=== PATIENT | male | born 1965 | race Caucasian/White ===

== ENCOUNTER → 2017-08-07 | Outpatient (CLI) | payer OTHER ==
[2013-11-26 10:34] VITALS: BMI 23.1
[~2017-08-07] MED LIST: ACET-1966 PO; ALB18R INH; ALBU8.5H IH; BENZ100C4 PO; CLIN300C99 PO; CYC10 PO; CYCL10TA29 PO; DEXL30CA5 PO; DEXL60CA6; DEXL60CA6 PO; DOC240 PO; DOXY-181 PO; FLUT16SP19; FLUT1DIS28 IH; GAB300 PO; GABA-1 PO; GABA-506 PO; GABA-549 PO; HYD2 PO; HYDR2TAB42 PO; HYDR5SUS PO; LACT1CAP6 PO; LOR1 PO; LOR5/325 PO; METH4TAB66 PO; MONT10TA PO; MOXI400T2 PO; NAP250 PO; OMEP1CAP24 PO; ONDA4TAB PO; OXYC-689 PO; PROM-110 PO; PROP60TA15 PO; PROP80CA3 PO; SIMV5TAB56 PO; ZIGRID; [UNRECOGNIZED DRUG - CODE] PO
--- NOTE | 2017-08-07 16:55 | RADIOLOGY IMAGING REPORT ---
FACILITY: [facility] PATIENT NAME: Ricky Reveles : 1965 MR: [id number] V: [id number] EXAM DATE: ORDERING PHYSICIAN: MARCO TESFAYE TECHNOLOGIST: Location: [place] [facility] - [place] Patient: Ricky Reveles : 1965 Visit/Account:[id number] Date of Sevice: 08/07/2017 Exam type: CHEST PA AND LAT History: Cough for a month Comparison: October 26, 2016. Findings: The lungs are free of acute effusions, infiltrates or edema. The cardiac silhouette is normal in siz e. The trachea is in midline. IMPRESSION: 1. No acute cardiac pulmonary process is seen Report Dictated By: Lia Rivera MD at 08/07/2017 4:49 PM Report E-Signed By: Lia Rivera MD at 08/07/2017 4:51 PM WSN:[email or web address]
== END ==
LOC: RAD 14:04
PROVIDERS: ATTEND Emergency Medicine
DX: R05 Cough (principal)
CPT/HCPCS: 71046

== ENCOUNTER 2017-08-08 16:35 | Emergency (ER) | payer OTHER ==
[2013-11-26 10:34] VITALS: Wt 70.3 kg
--- NOTE | 2017-08-08 16:45 | ER Report ---
History and Physical Time Seen By MD: 16:45 HPI/ROS CHIEF COMPLAINT: Headache HISTORY OF PRESENT ILLNESS: Patient is a 51-year-old male here with a history of migraines complaining of headache for the past several weeks worsening today per patient report. Patient notes that his PCP ordered an MRI outpatient due to concern for his headaches. He comes in today complaining of photosensitivity, throbbing sensation behind his temples and behind his eyes and at the base of the skull. Patient denies fevers, chills, chest pain, shortness breath. Complaining of an intermittent cough which seems to make his headache worse. Patient is hemodynamically stable at time of evaluation complaining of headache and light sensitivity. Patient reports taking opiates as well as Flexeril at home without alleviation of symptoms. REVIEW OF SYSTEMS: Constitutional: No fever, no chills. Eyes: Photosensitivity ENT: No sore throat. Cardiovascular: No chest pain, no palpitations. Respiratory: + mild cough Gastrointestinal: No abdominal pain, no vomiting. Genitourinary: No hematuria. Musculoskeletal: No back pain. Skin: No rashes. Neurological: + headache. Allergies: Coded Allergies: Penicillins (Verified Allergy, Unknown, 08/08/17) montelukast (Verified Allergy, Unknown, Rash, 08/08/17) Home Meds Active Scripts Benzonatate 100 Mg Cap (TESSALON PERLE 100 MG CAP) 100 Mg Capsule, 1-2 TAB PO TID, #30 CAP Prov:MARCO TESFAYE MD 08/08/17 Albuterol Sulfate (VENTOLIN HFA) 18 Gm Inh, 2 PUFF INH Q4-6H, #1 INH Prov:MARCO TESFAYE MD 08/08/17 Fluticasone/Salmeterol (ADVAIR 250-50 DISKUS) 1 Each Disk.w.dev, 1 EACH IH BID, #1 DISK Prov:MARCO TESFAYE MD 08/08/17 Cyclobenzaprine Hcl (CYCLOBENZAPRINE HCL) 10 Mg Tablet, 10 MG PO TID Y for prn, #12 TAB 0 Refills Prov:NADEEN MOSLEY PATIENT SERVICE REPRESENTATIVE-BC 07/28/17 Hydrocodone Bit/Acetaminophen (HYDROCODON-ACETAMINOPHEN 5-325) 1 Each Tablet, 1 EACH PO Q4-6H, #30 TAB Prov:MARCO TESFAYE MD 11/21/16 Gabapentin (GABAPENTIN) 300 Mg Capsule, 3 TAB PO DAILY, #270 CAPSULE 3 Refills Prov:MARCO TESFAYE MD 11/14/16 Dexlansoprazole (DEXILANT) 60 Mg Buddy., 1 TAB PO DAILY, #90 TAB 3 Refills Prov:MARCO TESFAYE MD 07/28/16 Fluticasone Prop 50 Mcg Ns (FLONASE 50 MCG NS) 16 Gm Alta.susp, 2 SPRAYS NA QDAY, #3 BOT 3 Refills Prov:MARCO TESFAYE MD 06/24/16 Reported Medications Propranolol Hcl (PROPRANOLOL HCL) 60 Mg Tablet, 1 TAB PO DAILY 05/24/16 Discontinued Reported Medications Acetaminophen (TYLENOL) 325 Mg Tablet, 650 MG PO Q6H Y for PRN, TAB 10/12/16 Albuterol Sulfate 90 Mcg/Act (PROAIR HFA 90 MCG/ACT) 8.5 Gm Hfa.aer.ad, 2 PUFF IH Q4-6H, INHALER 05/24/16 Discontinued Scripts Methylprednisolone (METHYLPREDNISOLONE) 4 Mg Tab.ds.pk, 4 MG PO DIRECTED, #1 PACK 0 Refills Prov:NADEEN MOSLEY PATIENT SERVICE REPRESENTATIVE-BC 07/28/17 Promethazine Hcl (PROMETHAZINE HCL) 25 Mg Tablet, 25 MG PO Q8H, #30 TAB Prov:MARCO TESFAYE MD 11/15/16 Cyclobenzaprine Hcl (CYCLOBENZAPRINE HCL) 10 Mg Tablet, 10 MG PO TID, #20 TAB 3 Refills Prov:MARCO TESFAYE MD 11/14/16 Hydrocodone/Chlorphen Polis (HYDROCODONE-CHLORPHENIRAM SUSP) 5 Ml Kyleigh.er.12h, 1 TSP PO Q12H Y for cough/pain, #120 ML 0 Refills Prov:MARCO TESFAYE MD 11/14/16 Doxycycline Hyclate (DOXYCYCLINE HYCLATE) 100 Mg Capsule, 100 MG PO BID, #20 CAPSULE 0 Refills Prov:OMID KING APRN PATIENT SERVICE REPRESENTATIVE-C 10/26/16 Ondansetron (ZOFRAN ODT) 4 Mg Tab.rapdis, 4 MG PO Q6-8H Y for NAUSEA/VOMITING, # 15 TAB.SHAUNNA Prov:MARS BATES DO 10/12/16 Hx Smoking: No Smoking Status: Never Smoker Exposure to Second Hand Smoke?: No Hx Substance Use Disorder: No Hx Alcohol Use: Yes Constitutional Vital Sign - Last 24 Hours 08/08/17 08/08/17 08/08/17 08/08/17 16:40 16:43 16:50 17:00 Temp 98.3 Pulse 90 91 Resp 16 B/P (MAP) 122/84 (97) 122/84 116/84 (95) Pulse Ox 91 94 O2 Delivery Room Air 08/08/17 08/08/17 08/08/17 08/08/17 17:05 17:30 17:35 17:50 Pulse 84 82 82 B/P (MAP) 104/78 (87) Pulse Ox 94 88 88 08/08/17 08/08/17 08/08/17 08/08/17 18:00 18:05 18:10 18:25 Pulse 85 84 89 B/P (MAP) 109/78 (88) Pulse Ox 86 87 08/08/17 18:30 B/P (MAP) 103/75 (84) Physical Exam General Appearance: The patient is alert, has no immediate need for airway protection and no signs of toxicity. Uncomfortable secondary to pain Eyes: Pupils equal and round no pallor or injection. ENT, Mouth: Mucous membranes are moist. Respiratory: There are no retractions, lungs are clear to auscultation. Cardiovascular: Regular rate and rhythm. Gastrointestinal: Abdomen is soft and non tender, no masses, bowel sounds normal. Neurological: No focal neurological deficits Skin: Warm and dry, no rashes. Musculoskeletal: Neck is supple non tender. Extremities are nontender, nonswollen and have full range of motion. DIFFERENTIAL DIAGNOSIS: After history and physical exam differential diagnosis was considered for tension headache, migraine, rebound headaches, concussion Medical Decision Making Data Points Result Diagram: 08/08/17 1656 08/08/17 1656 Laboratory Hematology Test 08/08/17 16:56 Red Blood Count 5.35 M/uL (4.00-5.60) Mean Corpuscular Volume 85.4 fL (80.0-96.0) Mean Corpuscular Hemoglobin 29.3 pg (26.0-33.0) Mean Corpuscular Hemoglobin Concent 34.3 g/dL (32.0-36.0) Red Cell Distribution Width 13.2 % (11.5-14.5) Mean Platelet Volume 8.1 fL (7.2-11.1) Neutrophils (%) (Auto) % (39.4-72.5) Lymphocytes (%) (Auto) % (17.6-49.6) Monocytes (%) (Auto) % (4.1-12.4) Eosinophils (%) (Auto) % (0.4-6.7) Basophils (%) (Auto) % (0.3-1.4) Nucleated RBC Relative Count (auto) /100WBC Neutrophils # (Auto) K/uL (2.0-7.4) Lymphocytes # (Auto) K/uL (1.3-3.6) Monocytes # (Auto) K/uL (0.3-1.0) Eosinophils # (Auto) K/uL (0.0-0.5) Basophils # (Auto) K/uL (0.0-0.1) Nucleated RBC Absolute Count (auto) K/uL Neutrophils % (Manual) 26 % (39.4-72.5) Band Neutrophils % % Lymphocytes % (Manual) 43 % (17.6-49.6) Atypical Lymphocytes % 19 % Monocytes % (Manual) 5 % (4.1-12.4) Eosinophils % (Manual) 4 % (0.4-6.7) Basophils % (Manual) 3 % (0.3-1.4) Peripheral Blood Smear Yes Y/N Erythrocyte Sedimentation Rate 33 mm/HOUR (0-15) Sodium Level 138 mmol/L (137-145) Potassium Level 3.9 mmol/L (3.5-5.0) Chloride Level 102 mmol/L (98-107) Carbon Dioxide Level 23 mmol/L (22-30) Blood Urea Nitrogen 11 mg/dl (9-21) Creatinine 1.30 mg/dl (0.66-1.25) Glomerular Filtration Rate Calc 58.7 Random Glucose 107 mg/dl (75-110) Calcium Level 8.9 mg/dl (8.4-10.2) Total Bilirubin 1.3 mg/dl (0.2-1.3) Aspartate Amino Transf (AST/SGOT) 42 U/L (0-35) Alanine Aminotransferase (ALT/SGPT) 62 U/L (0-56) Alkaline Phosphatase 87 U/L (0-126) Total Protein 7.8 g/dl (6.3-8.2) Albumin 3.7 g/dl (3.5-5.0) Chemistry Test 08/08/17 16:56 White Blood Count 14.3 k/uL (4.5-11.0) Red Blood Count 5.35 M/uL (4.00-5.60) Hemoglobin 15.7 g/dL (14.0-18.0) Hematocrit 45.7 % (42.0-52.0) Mean Corpuscular Volume 85.4 fL (80.0-96.0) Mean Corpuscular Hemoglobin 29.3 pg (26.0-33.0) Mean Corpuscular Hemoglobin Concent 34.3 g/dL (32.0-36.0) Red Cell Distribution Width 13.2 % (11.5-14.5) Platelet Count 183 K/uL (150-450) Mean Platelet Volume 8.1 fL (7.2-11.1) Neutrophils (%) (Auto) % (39.4-72.5) Lymphocytes (%) (Auto) % (17.6-49.6) Monocytes (%) (Auto) % (4.1-12.4) Eosinophils (%) (Auto) % (0.4-6.7) Basophils (%) (Auto) % (0.3-1.4) Nucleated RBC Relative Count (auto) /100WBC Neutrophils # (Auto) K/uL (2.0-7.4) Lymphocytes # (Auto) K/uL (1.3-3.6) Monocytes # (Auto) K/uL (0.3-1.0) Eosinophils # (Auto) K/uL (0.0-0.5) Basophils # (Auto) K/uL (0.0-0.1) Nucleated RBC Absolute Count (auto) K/uL Neutrophils % (Manual) 26 % (39.4-72.5) Band Neutrophils % % Lymphocytes % (Manual) 43 % (17.6-49.6) Atypical Lymphocytes % 19 % Monocytes % (Manual) 5 % (4.1-12.4) Eosinophils % (Manual) 4 % (0.4-6.7) Basophils % (Manual) 3 % (0.3-1.4) Peripheral Blood Smear Yes Y/N Erythrocyte Sedimentation Rate 33 mm/HOUR (0-15) Glomerular Filtration Rate Calc 58.7 Calcium Level 8.9 mg/dl (8.4-10.2) Total Bilirubin 1.3 mg/dl (0.2-1.3) Aspartate Amino Transf (AST/SGOT) 42 U/L (0-35) Alanine Aminotransferase (ALT/SGPT) 62 U/L (0-56) Alkaline Phosphatase 87 U/L (0-126) Total Protein 7.8 g/dl (6.3-8.2) Albumin 3.7 g/dl (3.5-5.0) EKG/Imaging Imaging HEAD W/O CONTRAST EXAMINATION: CT head/brain without contrast HISTORY: Headache TECHNIQUE: Contiguous axial images were obtained from the skull base to the vertex without intravenous contrast. One of the following dose optimization techniques was utilized in the performance of this exam: Automated exposure control; adjustment of the mA and/ or kV according to the patient's size; or use of an iterative reconstruction technique. Specific details can be referenced in the facility's radiology CT exam operational policy. COMPARISON STUDIES: None FINDINGS: Ventricles/sulci/fissures: Negative Masses/hemorrhage/midline shift: Negative White matter: Negative Delgado-white differentiation: Negative Extra-axial spaces: No subdural or epidural fluid collections. Dural venous sinuses/arterial structures: Negative Skull base/calvarium: Negative Visualized mastoid air cells/paranasal sinuses: Mild ethmoid sinus disease. Mucosal periosteal thickening in both maxillary sinuses left greater than right. Apparent 1.5 cm mucous retention cyst or polyp in the left maxillary sinus. Attenuated left mastoid air cells. IMPRESSION: 1. Negative CT scan of the head for acute intracranial pathology 2. Maxillary and ethmoid sinus disease. Hypoplastic mastoid air cells on the left ED Course/Re-evaluation ED Course Patient is a 51-year-old male here with complaints of headache consistent with prior migraines. Patient has been having intermittent headaches for the past several weeks and was sent in today because of his persistent headaches in spite of taking home medication. Patient denied fevers, chills, chest pain, abdominal pain, nausea, vomiting, rashes or confusion. Labs are remarkable for an increased white blood cell count and elevated ESR. Patient recently had a chest x-ray which was reportedly unremarkable. Physical exam was unremarkable. Patient did not exhibit signs of neck tenderness, fevers, hemodynamic instability. Patient received normal saline bolus, Benadryl, Toradol, magnesium , steroids for symptomatic relief. Patient reported that his pain had significantly improved since administration of the above medications. Patient was stable at time of discharge. Decision to Disposition Date: Aug 08, 2017 Decision to Disposition Time: 17:30 Depart Departure Latest Vital Signs Vital Signs Date Time Temp Pulse Resp B/P (MAP) Pulse Ox O2 Delivery O2 Flow Rate FiO2 08/08/17 18:30 103/75 (84) 08/08/17 18:25 89 87 08/08/17 16:43 98.3 16 Room Air Impression: Primary Impression: Migraine Condition: Improved Disposition: HOME OR SELF-CARE Referrals: MARCO TESFAYE MD (PCP) Patient Instructions: Migraine Headache (ED) Additional Instructions: Please follow up with your family doctor. Please keep your appointment for her MRI imaging as prescribed by your doctor. Please return promptly if you develop worsening headache, fevers, difficulty seeing, worsening fatigue or weakness. NGOC LATHAM DO Aug 08, 2017 16:45
[2017-08-08] MEDS ORDERED: NS(*) 0.9% 1000 ML BAG 1,000 ML IV ONE (16:52)
[2017-08-08] MEDS ORDERED: diphenhydrAMINE 50 MG/ML VIAL IVP ONE (16:55)
[2017-08-08] MEDS ORDERED: MAGNESIUM SUL* 2 GM/50 ML IVPB 50 ML IVPB ONE (16:55)
[2017-08-08] MEDS ORDERED: KETOROLAC 30 MG/ML VIAL IVP ONE (16:55)
[2017-08-08] MEDS ORDERED: DEXAMETHASONE SOD PHOS 10MG/ML IVP ONE (16:55)
[2017-08-08] MEDS ORDERED: METOCLOPRAMIDE 10 MG/2 ML SDV IVP ONE (16:55)
[2017-08-08 17:09] LABS: PLATELET COUNT, AUTOMATED 183 K/uL (150-450)
--- NOTE | 2017-08-08 17:48 | RADIOLOGY IMAGING REPORT ---
[place]AC[place] [facility] [place]IENT NAME: Ricky Reveles : 1965 MR: [id number] V: [id number] EXAM DATE: ORDERING PHYSICIAN: NGOC LATHAM TECHNOLOGIST: Location: [facility] - [place], [place] Patient: Ricky Reveles : 1965 Visit/Account:[id number] Date of Sevice: 08/08/2017 HEAD W/O CONTRAST EXAMINATION: CT head/brain without contrast HISTORY: Headache TECHNIQUE: Contiguous axial images were obtained from the skull base to the vertex without intravenou s contrast. One of the following dose optimization techniques was utilized in the performance of this exam: Autom ated exposure control; adjustment of the mA and/or kV according to the patient's size; or use of an i terative reconstruction technique. Specific details can be referenced in the facility's radiology C T exam operational policy. COMPARISON STUDIES: None FINDINGS: Ventricles/sulci/fissures: Negative Masses/hemorrhage/midline shift: Negative White matter: Negative Delgado-white differentiation: Negative Extra-axial spaces: No subdural or epidural fluid collections. Dural venous sinuses/arterial structures: Negative Skull base/calvarium: Negative Visualized mastoid air cells/paranasal sinuses: Mild ethmoid sinus disease. Mucosal periosteal thicke dax in both maxillary sinuses left greater than right. Apparent 1.5 cm mucous retention cyst or poly p in the left maxillary sinus. Attenuated left mastoid air cells. IMPRESSION: 1. Negative CT scan of the head for acute intracranial pathology 2. Maxillary and ethmoid sinus disease. Hypoplastic mastoid air cells on the left Report Dictated By: Piter Plaza MD at 08/08/2017 5:39 PM Report E-Signed By: Piter Plaza MD at 08/08/2017 5:44 PM WSN:[id number]
[2017-08-08 18:30] VITALS: BP 103/75
== END 2017-08-08 18:35 | disposition home or self-care (01) ==
LOC: ER 16:53
DX: G43.909 Migraine, unspecified, not intractable, without status migrainosus (principal)
CPT/HCPCS: 70450; 85025; 85651; 96361; 96374; 96375; 99284; J1100; J1200; J1885; J2765; J3475; 82040; 82247; 82310; 82374; 82435; 82565; 82947; 84075; 84132; 84155; 84295; 84450; 84460; 84520

== ENCOUNTER → 2017-08-22 | Outpatient (CLI) | payer OTHER ==
[2013-11-26 10:34] VITALS: BMI 23.1
[~2017-08-22] MED LIST changes: +GADOBENATE 529MG/1ML 15ML VIAL IVP ONE
--- NOTE | 2017-08-22 10:58 | RADIOLOGY IMAGING REPORT ---
FACILITY: [facility] - [place] PATIENT NAME: Ricky Reveles : 1965 MR: [id number] V: [id number] EXAM DATE: ORDERING PHYSICIAN: MARCO TESFAYE TECHNOLOGIST: Location: [facility] Patient: Ricky Reveles : 1965 Visit/Account:[id number] Date of Sevice: 08/22/2017 BRAIN MR W W/O CONTRAST Headache, ADDITIONAL PERTINENT HISTORY: None. COMPARISON STUDIES: MR brain October 20, [address] August 08, 2017 TECHNIQUE: Multi-planar, multi-sequence brain MRI was performed with and without IV contrast adminis tration. Contrast: 15 mL MultiHance FINDINGS: Ventricles / sulci / fissures: Negative. Masses / hemorrhage / midline shift: Negative. White matter: Again noted is a single stable punctate focus of nonenhancing white matter hyperintens ity in the posterior left frontal lobe which is nonspecific Delgado-white differentiation: Normal. Extra-axial fluid collections: Negative. Intracranial vasculature and dural sinuses: Small developmental venous anomaly in the right cerebell um again noted Skull base / calvarium: Negative. Visualized mastoid air cells / paranasal sinuses: There is extensive fluid opacification in the maxil walker sinuses ethmoid sinuses and right sphenoid sinus Orbits: Negative. Upper neck:Negative. IMPRESSION: A single stable punctate focus of nonenhancing white matter hyperintensity in the posterior left fron mao lobe is nonspecific Small developmental venous anomaly in the right cerebellum Extensive opacification within the maxillary sinuses ethmoid sinuses and right sphenoid sinus Report Dictated By: Lia Rivera MD at 08/22/2017 10:46 AM Report E-Signed By: Lia Rivera MD at 08/22/2017 10:54 AM WSN:[email or web address]
== END ==
LOC: MRI 01:09
PROVIDERS: ATTEND Emergency Medicine
DX: J32.3 Chronic sphenoidal sinusitis (principal); J32.0 Chronic maxillary sinusitis
CPT/HCPCS: 70553; A9577

== ENCOUNTER → 2017-11-21 | Outpatient (CLI) | payer OTHER ==
[2013-11-26 10:34] VITALS: BMI 23.1
[~2017-11-21] MED LIST changes: +FLU60SYR36 IM; -GADOBENATE 529MG/1ML 15ML VIAL IVP ONE; +LIDO700A19 TOP
== END ==
LOC: LAB 10:00
PROVIDERS: ATTEND Emergency Medicine
DX: E78.5 Hyperlipidemia, unspecified (principal)
CPT/HCPCS: 36415; 82465; 83718; 84478

== ENCOUNTER → 2018-01-23 | Outpatient (CLI) | payer OTHER ==
[2013-11-26 10:34] VITALS: BMI 23.1
[~2018-01-23] MED LIST changes: +PROP60CA22 PO
[2018-01-23 12:11] LABS: PLATELET COUNT, AUTOMATED 281 K/uL (150-450)
== END ==
LOC: LAB 11:19
PROVIDERS: ATTEND Internal Medicine Nephrology
DX: N28.1 Cyst of kidney, acquired (principal); R80.9 Proteinuria, unspecified; R31.9 Hematuria, unspecified; N02.8 Recurrent and persistent hematuria with other morphologic changes
CPT/HCPCS: 36415; 81001; 82040; 82247; 82310; 82374; 82435; 82565; 82570; 82947; 84075; 84132; 84155; 84156; 84295; 84450; 84460; 84520; 85025

== ENCOUNTER 2018-01-31 01:06 | Day surgery (SDC) | payer OTHER ==
[2013-11-26 10:34] VITALS: Ht 172.7 cm; Wt 69.4 kg
[~2018-01-31] VITALS: Ht 172.7 cm; Wt 69.4 kg
[~2018-01-31 01:06] MED LIST changes: -GABA-506 PO; +GABA-507 PO
[2018-01-31] MEDS ORDERED: PROPOFOL EMUL(*) 10MG/ML 20 ML 20 ML ONE ×2 (07:03→08:54)
[2018-01-31 08:11] VITALS: BP 111/82
[2018-01-31] MEDS ORDERED: NORMOSOL R SOLN(*) 1000 ML BAG 1,000 ML IV PRN (08:20)
[2018-01-31] MEDS ORDERED: LIDOCAINE/SOD BICARB 8.4% SYR ID ONE (08:20)
[2018-01-31 09:16] VITALS: BP 110/87
--- NOTE | 2018-01-31 09:28 | Short(Outpt) Discharge Summary ---
Discharge Summary Reason for Hosp/Final Diag: (1) GERD (gastroesophageal reflux disease) Status: Chronic Hospital Course & Plan: EGD and colonoscopy with polypectomy x1 completed without problems. (2) Colon cancer screening Status: Chronic Departure Discharge to: Home, Self Care Discharge Instructions Home Meds Active Scripts Gabapentin (GABAPENTIN) 300 Mg Capsule, 3 TAB PO DAILY, #270 CAPSULE 3 Refills Prov:MARCO TESFAYE MD 01/24/18 Albuterol Sulfate (VENTOLIN HFA) 18 Gm Inh, 2 PUFF INH Q4-6H PRN for ALLERGY SYMPTOMS, #1 INH Prov:HOOD LIRA MD 12/19/17 Dexlansoprazole (DEXILANT) 60 Mg Cap., 1 TAB PO DAILY, #90 TAB 3 Refills Prov:MARCO TESFAYE MD 12/07/17 Reported Medications Propranolol Hcl (PROPRANOLOL HCL) 60 Mg Cap.sa.24h, 60 MG PO QDAY 12/20/17 Diet: Regular Activity: As Tolerated Special Instructions: Your upper endoscopy and your colonoscopy were both completed without any problems and your prep was excellent (Good Job!!). Other than the small hiatal hernia, your upper endoscopy was normal. Your colon was normal except for a tiny polyp that I removed from your rectum and it was sent to pathology. My office will call you in the next week or two to let you know what the polyp is and when your next colonoscopy should be; either 5 or 10 years depending on results. Copies to: MARCO TESFAYE MD ; Problem Qualifiers (1) GERD (gastroesophageal reflux disease): Esophagitis presence: without esophagitis Qualified Codes: K21.9 - Gastro- esophageal reflux disease without esophagitis HOOD LIRA MD Jan 31, 2018 09:28
[2018-01-31 09:30] VITALS: BP 119/87
[2018-01-31 09:44] VITALS: BP 113/85
[2018-01-31 09:45] VITALS: BP 116/88
== END 2018-01-31 10:05 | disposition home or self-care (01) ==
LOC: OR 01:06
PROVIDERS: ATTEND Surgery
DX: Z12.11 Encounter for screening for malignant neoplasm of colon (principal); K62.1 Rectal polyp; K21.9 Gastro-esophageal reflux disease without esophagitis
CPT/HCPCS: 00813; 43235; 45380; 88305; J2704

== ENCOUNTER → 2018-05-22 | Outpatient (CLI) | payer OTHER ==
[2013-11-26 10:34] VITALS: BMI 23.1
[~2018-05-22] MED LIST changes: -GABA-507 PO; +GABA-535 PO; +PRED-1 PO; +PROM5SYR PO; +PROP80CA40 PO
[2018-05-22 09:38] LABS: PLATELET COUNT, AUTOMATED 326 K/uL (150-450)
--- NOTE | 2018-05-22 09:54 | RADIOLOGY IMAGING REPORT ---
FACILITY: [facility] [place] PATIENT NAME: Ricky Reveles : 1965 MR: [id number] V: [id number] EXAM DATE: ORDERING PHYSICIAN: MARCO TESFAYE TECHNOLOGIST: Location[place] [facility] [place] Patient: Ricky Reveles : 1965 Visit/Account:[id number] Date of Sevice: 05/22/2018 Exam type: CHEST PA LAT History: Bronchitis, cough and chest pressure x1 month Comparison: August 07, 2017. Findings: The lungs are free of acute effusions infiltrates or edema. Cardiac silhouette is normal in size. T he trachea is in midline. IMPRESSION: 1. No acute cardiopulmonary process is seen Report Dictated By: Lia Rivera MD at 05/22/2018 9:49 AM Report E-Signed By: Lia Rivera MD at 05/22/2018 9:50 AM WSN:[email or web address]
== END ==
LOC: LAB 09:08
PROVIDERS: ATTEND Emergency Medicine
DX: J40 Bronchitis, not specified as acute or chronic (principal); E78.00 Pure hypercholesterolemia, unspecified
CPT/HCPCS: 36415; 71046; 82310; 82374; 82435; 82465; 82565; 82947; 83718; 84132; 84295; 84478; 84520; 85025

== ENCOUNTER 2018-06-30 13:45 | Emergency (ER) | payer OTHER ==
[2013-11-26 10:34] VITALS: BMI 23.1
[2018-06-30] MEDS ORDERED: NS(*) 0.9% 1000 ML BAG 1,000 ML IV ONE (13:47)
--- NOTE | 2018-06-30 13:57 | ER Report ---
History and Physical Time Seen By MD: 13:56 Hx. of Stated Complaint: pt presents with reported hx of sitting in the grass at park when a dog knocked him over with leash rwrapping around his neck. pt has no movement on L side of his body with pain in his neck. sent pt to ct on arrival (NGOC LATHAM DO) HPI/ROS CHIEF COMPLAINT: Cervical spine pain, left upper and lower extremity paresis HISTORY OF PRESENT ILLNESS: Patient is a 52-year-old male here with complaints of neck pain, left upper and left lower extremity paresis. Patient was reportedly sitting at the park when a dog reportedly ran by him rewrapping the leash around his neck and causing left-sided neck pain. 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 Denies loss consciousness, difficulty breathing, stridor, dysphagia. REVIEW OF SYSTEMS: Constitutional: No fever, no chills. Eyes: No discharge. ENT: No sore throat. Cardiovascular: No chest pain, no palpitations. Respiratory: No cough, no shortness of breath. Gastrointestinal: No abdominal pain, no vomiting. Genitourinary: No hematuria. Musculoskeletal: + Cervical spine neck pain Skin: No rashes. Neurological: Left upper and left lower extremity paresis per patient report (NGOC LATHAM DO) Allergies: Coded Allergies: Penicillins (Verified Allergy, Unknown, 06/30/18) montelukast (Verified Allergy, Unknown, Rash, 06/30/18) Home Meds Active Scripts Prednisone (PREDNISONE) 20 Mg Tablet, 60 MG PO QDAY, #12 TAB 0 Refills Prov:JENNIFER SOMMER MD 06/30/18 Oxycodone Hcl (OXYCODONE HCL) 5 Mg Capsule, 5 MG PO Q4-6H PRN for PAIN, #15 CAPSULE Prov:NGOC LATHAM DO 06/30/18 Albuterol Sulfate (VENTOLIN HFA) 18 Gm Inh, 2 PUFF INH Q4-6H PRN for ALLERGY SYMPTOMS, #1 INH Prov:MARCO TESFAYE MD 05/22/18 Propranolol Hcl (INDERAL LA) 80 Mg Cap.sa.24h, 80 MG PO DAILY, #90 TAB 3 Refills Prov:MARCO TESFAYE MD 02/27/18 Gabapentin (GABAPENTIN) 300 Mg Capsule, 3 TAB PO DAILY, #270 CAPSULE 3 Refills Prov:MARCO TESFAYE MD 01/24/18 Dexlansoprazole (DEXILANT) 60 Mg Cap., 1 TAB PO DAILY, #90 TAB 3 Refills Prov:MARCO TESFAYE MD 12/07/17 Reported Medications Fluticasone Prop 50 Mcg Ns (FLONASE 50 MCG NS) 16 Gm [place].susp 06/30/18 Discontinued Scripts Prednisone 10 Mg Tab (PREDNISONE 10 MG TAB) 10 Mg Tablet, 6 TAB PO QDAY, #21 TAB Prov:MARCO TESFAYE MD 05/22/18 Hx Smoking: No Smoking Status: Never Smoker Exposure to Second Hand Smoke?: No Hx Substance Use Disorder: No Hx Alcohol Use: Yes (NGOC LATHAM DO) Constitutional Vital Sign - Last 24 Hours 06/30/18 06/30/18 06/30/18 06/30/18 13:56 14:00 14:15 14:30 Pulse 82 Resp 12 B/P (MAP) 135/91 (106) 127/91 (103) 130/90 (103) 147/105 (119) Pulse Ox 89 06/30/18 06/30/18 06/30/18 06/30/18 14:45 15:00 15:15 15:30 Pulse 76 91 Resp 9 11 B/P (MAP) 119/92 (101) 121/88 (99) 164/116 (132) Pulse Ox 92 93 06/30/18 06/30/18 06/30/18 06/30/18 15:35 17:16 17:30 18:00 Pulse 91 82 85 Resp 17 20 18 B/P (MAP) 128/95 (106) 122/91 (101) 128/94 (105) Pulse Ox 96 90 94 06/30/18 18:30 Pulse 90 Resp 16 B/P (MAP) 128/101 (110) Pulse Ox 93 (JENNIFER SOMMER MD) Physical Exam General Appearance: The patient is alert, has no immediate need for airway protection and no signs of toxicity. Moderate distress Eyes: Pupils equal and round no pallor or injection. ENT, Mouth: Mucous membranes are moist. Respiratory: There are no retractions, lungs are clear to auscultation. Cardiovascular: Regular rate and rhythm. Gastrointestinal: Abdomen is soft and non tender, no masses, bowel sounds normal. Neurological: Left upper and left lower extremity paresis, reflexes intact Skin: Warm and dry, no rashes. Musculoskeletal: Significant cervical spine tenderness, c-collar in place No movement of the left upper or left lower extremities DIFFERENTIAL DIAGNOSIS: After history and physical exam differential diagnosis was considered for fracture, contusion, sprain, dislocation, cord impingement (NGOC LATHAM S DO) Medical Decision Making Data Points Result Diagram: 06/30/18 1350 06/30/18 1350 Laboratory Hematology Test 06/30/18 00:00 06/30/18 13:50 Urine Color Yellow Urine Clarity Clear Urine pH 5.0 pH (4.8-9.5) Urine Specific [place] 1.026 Urine Protein Negative mg/dL (NEGATIVE) Urine Glucose (UA) Negative mg/dL (NEGATIVE) Urine Ketones Negative mg/dL (NEGATIVE) Urine Blood Negative (NEGATIVE) Urine Nitrite Negative (NEGATIVE) Urine Bilirubin Negative (NEGATIVE) Urine Urobilinogen Negative mg/dL (0.2-1.9) Urine Leukocyte Esterase Negative (NEGATIVE) Urine RBC <1 /HPF (0-2/HPF) Urine WBC <1 /HPF (0-5/HPF) Urine Squamous Epithelial Cells Few /LPF (NONE-FEW) Urine Bacteria Negative /HPF (NONE-FEW) Urine Mucus None /HPF (NONE-FEW) Red Blood Count 5.50 M/uL (4.00-5.60) Mean Corpuscular Volume 87.9 fL (80.0-96.0) Mean Corpuscular Hemoglobin 29.5 pg (26.0-33.0) Mean Corpuscular Hemoglobin Concent 33.6 g/dL (32.0-36.0) Red Cell Distribution Width 13.4 % (11.5-14.5) Mean Platelet Volume 8.8 fL (7.2-11.1) Neutrophils (%) (Auto) 47.9 % (39.4-72.5) Lymphocytes (%) (Auto) 42.3 % (17.6-49.6) Monocytes (%) (Auto) 7.0 % (4.1-12.4) Eosinophils (%) (Auto) 1.9 % (0.4-6.7) Basophils (%) (Auto) 0.9 % (0.3-1.4) Nucleated RBC Relative Count (auto) 0.1 /100WBC Neutrophils # (Auto) 4.5 K/uL (2.0-7.4) Lymphocytes # (Auto) 4.0 K/uL (1.3-3.6) Monocytes # (Auto) 0.7 K/uL (0.3-1.0) Eosinophils # (Auto) 0.2 K/uL (0.0-0.5) Basophils # (Auto) 0.1 K/uL (0.0-0.1) Nucleated RBC Absolute Count (auto) 0.01 K/uL Prothrombin Time 12.0 seconds (12.0-14.4) Prothromb Time International Ratio 0.89 Activated Partial Thromboplast Time 31 seconds (23-35) Sodium Level 138 mmol/L (137-145) Potassium Level 4.3 mmol/L (3.5-5.0) Chloride Level 106 mmol/L (98-107) Carbon Dioxide Level 24 mmol/L (22-30) Blood Urea Nitrogen 14 mg/dl (9-21) Creatinine 1.60 mg/dl (0.66-1.25) Glomerular Filtration Rate Calc 46.0 Random Glucose 94 mg/dl (75-110) Lactate 2.3 mmol/L (0.7-2.1) Calcium Level 9.4 mg/dl (8.4-10.2) Total Bilirubin 1.3 mg/dl (0.2-1.3) Aspartate Amino Transf (AST/SGOT) 34 U/L (0-35) Alanine Aminotransferase (ALT/SGPT) 35 U/L (0-56) Alkaline Phosphatase 64 U/L (0-126) Total Protein 8.0 g/dl (6.3-8.2) Albumin 4.3 g/dl (3.5-5.0) Lipase 346 U/L (23-300) Serum Alcohol 28 mg/dl Chemistry Test 06/30/18 00:00 06/30/18 13:50 Urine Color Yellow Urine Clarity Clear Urine pH 5.0 pH (4.8-9.5) Urine Specific [place] 1.026 Urine Protein Negative mg/dL (NEGATIVE) Urine Glucose (UA) Negative mg/dL (NEGATIVE) Urine Ketones Negative mg/dL (NEGATIVE) Urine Blood Negative (NEGATIVE) Urine Nitrite Negative (NEGATIVE) Urine Bilirubin Negative (NEGATIVE) Urine Urobilinogen Negative mg/dL (0.2-1.9) Urine Leukocyte Esterase Negative (NEGATIVE) Urine RBC <1 /HPF (0-2/HPF) Urine WBC <1 /HPF (0-5/HPF) Urine Squamous Epithelial Cells Few /LPF (NONE-FEW) Urine Bacteria Negative /HPF (NONE-FEW) Urine Mucus None /HPF (NONE-FEW) White Blood Count 9.4 k/uL (4.5-11.0) Red Blood Count 5.50 M/uL (4.00-5.60) Hemoglobin 16.2 g/dL (14.0-18.0) Hematocrit 48.3 % (42.0-52.0) Mean Corpuscular Volume 87.9 fL (80.0-96.0) Mean Corpuscular Hemoglobin 29.5 pg (26.0-33.0) Mean Corpuscular Hemoglobin Concent 33.6 g/dL (32.0-36.0) Red Cell Distribution Width 13.4 % (11.5-14.5) Platelet Count 254 K/uL (150-450) Mean Platelet Volume 8.8 fL (7.2-11.1) Neutrophils (%) (Auto) 47.9 % (39.4-72.5) Lymphocytes (%) (Auto) 42.3 % (17.6-49.6) Monocytes (%) (Auto) 7.0 % (4.1-12.4) Eosinophils (%) (Auto) 1.9 % (0.4-6.7) Basophils (%) (Auto) 0.9 % (0.3-1.4) Nucleated RBC Relative Count (auto) 0.1 /100WBC Neutrophils # (Auto) 4.5 K/uL (2.0-7.4) Lymphocytes # (Auto) 4.0 K/uL (1.3-3.6) Monocytes # (Auto) 0.7 K/uL (0.3-1.0) Eosinophils # (Auto) 0.2 K/uL (0.0-0.5) Basophils # (Auto) 0.1 K/uL (0.0-0.1) Nucleated RBC Absolute Count (auto) 0.01 K/uL Prothrombin Time 12.0 seconds (12.0-14.4) Prothromb Time International Ratio 0.89 Activated Partial Thromboplast Time 31 seconds (23-35) Glomerular Filtration Rate Calc 46.0 Lactate 2.3 mmol/L (0.7-2.1) Calcium Level 9.4 mg/dl (8.4-10.2) Total Bilirubin 1.3 mg/dl (0.2-1.3) Aspartate Amino Transf (AST/SGOT) 34 U/L (0-35) Alanine Aminotransferase (ALT/SGPT) 35 U/L (0-56) Alkaline Phosphatase 64 U/L (0-126) Total Protein 8.0 g/dl (6.3-8.2) Albumin 4.3 g/dl (3.5-5.0) Lipase 346 U/L (23-300) Serum Alcohol 28 mg/dl Coagulation Test 06/30/18 13:50 Prothrombin Time 12.0 seconds Prothromb Time International Ratio 0.89 Activated Partial Thromboplast Time 31 seconds Toxicology Test 06/30/18 13:50 Serum Alcohol 28 mg/dl Urinalysis Test 06/30/18 00:00 Urine Color Yellow Urine Clarity Clear Urine pH 5.0 pH (4.8-9.5) Urine Specific [place] 1.026 Urine Protein Negative mg/dL (NEGATIVE) Urine Glucose (UA) Negative mg/dL (NEGATIVE) Urine Ketones Negative mg/dL (NEGATIVE) Urine Blood Negative (NEGATIVE) Urine Nitrite Negative (NEGATIVE) Urine Bilirubin Negative (NEGATIVE) Urine Urobilinogen Negative mg/dL (0.2-1.9) Urine Leukocyte Esterase Negative (NEGATIVE) Urine RBC <1 /HPF (0-2/HPF) Urine WBC <1 /HPF (0-5/HPF) Urine Squamous Epithelial Cells Few /LPF (NONE-FEW) Urine Bacteria Negative /HPF (NONE-FEW) Urine Mucus None /HPF (NONE-FEW) (PASHAJENNIFER TATE MD) EKG/Imaging Imaging PATIENT NAME: Ricky Reveles : 1965 MR: [id number] V: [id number] EXAM DATE: [id number] ORDERING PHYSICIAN: NGOC LATHAM TECHNOLOGIST: Location: [facility] [place] Patient: Ricky Reveles : 1965 Visit/Account:[id number] Date of Sevice: 06/30/2018 Examination: CT head without contrast, CTA neck, and CT cervical spine without contrast Comparison: CT head without contrast 08/08/2017. History: Trauma to neck. Left-sided numbness. Procedure: Initial noncontrast head CT and cervical spine CT is followed by ar terial phase imaging of the neck with 180 mL intravenous Isovue 370. Reconstruction of the source data set includes multiplanar 2D in the sagittal and coronal planes, and 3D reconstructed coronal slab MIP series. Percent stenosis is based on NASCET criteria. One of the following dose optimization techniques was utilized in the performance of this exam: Automated exposure control; adjustment of the mA and/or kV according to the patient's size; or use of an iterative reconstruction technique. Specific details can be referenced in the facility's radiology CT exam operational policy. Findings: CT head: Brain volume: Age-appropriate. Hemorrhage/extra-axial fluid: None. Mass effect/midline shift/edema: None. Ischemia: Delgado-white differentiation is preserved. Ventricles and basal cisterns: Within normal limits. Posterior fossa: Negative. Calvarium, skull base, and scalp: Negative. Visualized sinuses and orbits: Within normal limits. CTA neck: Aortic arch: Conventional aortic arch anatomy. Right extracranial carotid system: Negative. Left extracranial carotid system: Negative. Vertebral arteries: Negative. Visualized intracranial arteries: Negative. CT cervical spine: Alignment: Within normal limits. Cranio-cervical junction: Within normal limits. Vertebral bodies: No fracture. Posterior elements: No fracture. Minor facet arthropathy. Disc spaces: C4-C5, C5-C6, and C6-C7 mild degenerative disc disease. Small posterior disc and osteophyte complexes at these levels results in mild canal narrowing. Hardware: None. Soft tissues: Negative. Visualized upper chest: No acute findings. IMPRESSION: 1. Negative noncontrast head CT. 2. Negative CTA neck. 3. No cervical spine fracture or malalignment. 4. Cervical spine mild degenerative change as described above. Report Dictated By: Julian Reilly MD at 06/30/2018 2:51 PM Report E-Signed By: Julian Reilly MD at 06/30/2018 3:07 PM WSN:[email or web address] PATIENT NAME: Ricky Reveles : 1965 MR: [id number] V: [id number] EXAM DATE: ORDERING PHYSICIAN: NGOC LATHAM TECHNOLOGIST: Location: [facility] [place] Patient: Ricky Reveles : 1965 Visit/Account:[id number] Date of Sevice: 06/30/2018 Examination: CT chest, abdomen, and pelvis with contrast Comparison: 07/08/2016 and earlier. History: trauma to neck Procedure: Multiplanar contrast-enhanced imaging of the chest, abdomen, and pelvis. A total of 180 mL intravenous Isovue 370 was administered for all studies. One of the following dose optimization techniques was utilized in the performance of this exam: Automated exposure control; adjustment of the mA and/or kV according to the patient's size; or use of an iterative reconstruction technique. Specific details can be referenced in the facility's radiology CT exam operational policy. Findings: CT chest: Mediastinum: Cardiac chamber size is normal. No pericardial effusion. No thoracic aortic aneurysm. No mediastinal hemorrhage. Small hiatal hernia. Lymph nodes: Negative. Lungs and pleura: There are a few small foci of inflammatory consolidation in the right upper lobe. No other consolidation or nodule is identified. No pneumothorax, edema, or effusion. Airways: Negative. Diaphragm: Intact. CT abdomen and pelvis: Liver: Negative Gallbladder and biliary system: Negative Spleen: Negative Pancreas: Negative Adrenal glands: Right adrenal 6 mm nodule. This is incompletely characterized but unchanged since at least 07/08/2016 and is favored to be a small adenoma. Kidneys and urinary bladder: There are a few small renal cysts. No mass or hydronephrosis. Urinary bladder is mildly distended but otherwise unremarkable. Vessels: No abdominal aortic aneurysm. No retroperitoneal hemorrhage. Portal venous system and IVC are within normal limits. Bowel and mesentery: Small hiatal hernia. No gastric distention. The appendix is not identified. No pericecal inflammation. Small amount of stool in the col on. No bowel or mesenteric inflammation. Pelvic organs: Mildly enlarged prostate. Free air/free fluid: None Lymph nodes: Negative Abdominal wall and subcutaneous tissues: Bilateral cord lipomas, less likely fat-containing inguinal hernias. No acute findings. Osseous structures: Thoracolumbar spine: No vertebral body height loss or malalignment. L5-S1 moderate degenerative disc disease. No acute findings. Pelvic ring: Negative Ribs: Negative Visualized sternum, scapula, and clavicles: Negative IMPRESSION: 1. Right upper lobe small foci of consolidation are most suggestive of inflam mation and correlation with any evidence of a bronchopneumonia or infectious bronchiolitis is recommended. Contusion is considered less likely. 2. No findings of trauma or acute disease are otherwise identified in the chest, abdomen, or pelvis. 3. Chronic/incidental findings as detailed above. Report Dictated By: Julian Reilly MD at 06/30/2018 3:07 PM PATIENT NAME: Ricky Reveles : 1965 MR: [id number] V: [id number] EXAM DATE: [id number] ORDERING PHYSICIAN: NGOC LATHAM TECHNOLOGIST: Location: [facility] [place] Patient: Ricky Reveles : 1965 Visit/Account:[id number] Date of Sevice: 06/30/2018 Examination: CT head without contrast, CTA neck, and CT cervical spine without contrast Comparison: CT head without contrast 08/08/2017. History: Trauma to neck. Left-sided numbness. Procedure: Initial noncontrast head CT and cervical spine CT is followed by arterial phase imaging of the neck with 180 mL intravenous Isovue 370. Reconstruction of the source data set includes multiplanar 2D in the sagittal and coronal planes, and 3D reconstructed coronal slab MIP series. Percent stenosis is based on NASCET criteria. One of the following dose optimization techniques was utilized in the performance of this exam: Automated exposure control; adjustment of the mA and/or kV according to the patient's size; or use of an iterative reconstruction technique. Specific details can be referenced in the facility's radiology CT exam operational policy. Findings: CT head: Brain volume: Age-appropriate. Hemorrhage/extra-axial fluid: None. Mass effect/midline shift/edema: None. Ischemia: Delgado-white differentiation is preserved. Ventricles and basal cisterns: Within normal limits. Posterior fossa: Negative. Calvarium, skull base, and scalp: Negative. Visualized sinuses and orbits: Within normal limits. CTA neck: Aortic arch: Conventional aortic arch anatomy. Right extracranial carotid system: Negative. Left extracranial carotid system: Negative. Vertebral arteries: Negative. Visualized intracranial arteries: Negative. CT cervical spine: Alignment: Within normal limits. Cranio-cervical junction: Within normal limits. Vertebral bodies: No fracture. Posterior elements: No fracture. Minor facet arthropathy. Disc spaces: C4-C5, C5-C6, and C6-C7 mild degenerative disc disease. Small posterior disc and osteophyte complexes at these levels results in mild canal narrowing. Hardware: None. Soft tissues: Negative. Visualized upper chest: No acute findings. IMPRESSION: 1. Negative noncontrast head CT. 2. Negative CTA neck. 3. No cervical spine fracture or malalignment. 4. Cervical spine mild degenerative change as described above. Report Dictated By: Julian Reilly MD at 06/30/2018 2:51 PM (NGOC LATHAM DO) ED Course/Re-evaluation ED Course Patient is a 52-year-old male here after sustaining an injury involving a dog and a dog leash wrapped around his neck with subsequent complaints of left sided motor weakness and paresthesias in the left upper and lower extremities. Patient was initially transported to the CT scanner in order to obtain CT scanning of the head, C-spine, chest abdomen pelvis, CTA of the neck in order to rule out neck vascular injury. CT imaging was unremarkable and upon reevaluation the patient had improved strength and movement in the extremities but did still have mild paresthesias. C-collar remained in place as the patient complained of persistent neck pain. Patient did have an isolated episode of agitation and abnormal movement of the extremities which seem to be bilateral and equal. Episode was reportedly after the patient had received ketamine. Patient was given fentanyl, Dilaudid in case of spinal cord swelling, fluid bolus. Of note, the patient's alcohol level was 28 at time of arrival. Decision was made to complete MRI of the neck and brain due to patient's motor deficits, seizure like activity. MRI of the brain and cervical spine were unremarkable with no signs of spinal cord impingement or hematomas or damage. Patient was ambulated prior to discharge. Patient was neurovascularly intact prior to discharge. Recommend close PCP follow-up, follow-up with spinal surgeon as needed. Prescription provided for Percocet for pain control. Return precautions were provided. Patient was signed out to Dr. Sommer at shift change pending patient ambulation and discharge. Decision to Disposition Date: June 30, 2018 Decision to Disposition Time: 18:35 (NGOC LATHAM DO) Depart Departure Latest Vital Signs Vital Signs Date Time Temp Pulse Resp B/P (MAP) Pulse Ox O2 Delivery O2 Flow Rate FiO2 06/30/18 18:30 90 16 128/101 (110) 93 (JENNIFER SOMMER MD) Comment Patient discharged, but concerned about pain and mobility. Provided a walker to help him get around at home. Pharmacy closing, so sent home with Oxycodone take home pack. Also started Prednisone 60mg daily for 5 days. Reminded to follow-up with his neurologist or neurosurgeon in [place] as planned. (JENNIFER SOMMER MD) Impression: Primary Impression: Neck pain Additional Impression: Paresthesias Condition: Improved Disposition: HOME OR SELF-CARE Referrals: MARCO TESFAYE MD (PCP) New Scripts Prednisone (PREDNISONE) 20 Mg Tablet 60 MG PO QDAY, #12 TAB 0 Refills Prov: JENNIFER SOMMER MD 06/30/18 Oxycodone Hcl (OXYCODONE HCL) 5 Mg Capsule 5 MG PO Q4-6H PRN for PAIN, #15 CAPSULE Prov: NGOC LATHAM DO 06/30/18 Patient Instructions: Acute Neck Pain (GEN), Paresthesia (ED) Additional Instructions: Please keep your cervical collar in place in order to ensure stability of your neck until cleared by your primary care provider or spinal surgeon. Failure to keep the collar in place may result in further damage to your cervical spine, spinal cord. CT imaging and MRI imaging of her brain, neck, chest abdomen pelvis showed no signs of fractures, spinal cord damage. Please follow-up with your primary care provider, spinal surgeon as needed. Please return promptly if you develop worsening headache, motor weakness, visual changes, numbness, confusion. You may take ibuprofen, naproxen or Tylenol as needed for primary pain control, you may take 1 tablet of oxycodone every 4-6 hours as needed for breakthrough pain control, do not drive or drink alcohol while on this medication. Problem Qualifiers NGOC LATHAM DO June 30, 2018 13:57 JENNIFER SOMMER MD June 30, 2018 19:08
[2018-06-30 14:07] LABS: PLATELET COUNT, AUTOMATED 254 K/uL (150-450)
[2018-06-30 14:15] LABS: INR 0.89
[2018-06-30] MEDS ORDERED: FLUT16SP19 (14:35)
[2018-06-30] MEDS ORDERED: fentaNYL CITR 100 MCG/2 ML AMP IVP ONE (14:40)
[2018-06-30] MEDS ORDERED: KETAMINE HCL 500 MG/5 ML VIAL IVP ONE (15:10)
--- NOTE | 2018-06-30 15:12 | RADIOLOGY IMAGING REPORT ---
FACILITY: [facility] [place] PATIENT NAME: Ricky Reveles : 1965 MR: [id number] V: [id number] EXAM DATE: ORDERING PHYSICIAN: NGOC LATHAM TECHNOLOGIST: Location: [facility] Patient: Ricky Reveles : 1965 Visit/Account:[id number] Date of Sevice: 06/30/2018 Examination: CT head without contrast, CTA neck, and CT cervical spine without contrast Comparison: CT head without contrast 08/08/2017. History: Trauma to neck. Left-sided numbness. Procedure: Initial noncontrast head CT and cervical spine CT is followed by arterial phase imaging of the neck with 180 mL intravenous Isovue 370. Reconstruction of the source data set includes multipla max 2D in the sagittal and coronal planes, and 3D reconstructed coronal slab MIP series. Percent emily nosis is based on NASCET criteria. One of the following dose optimization techniques was utilized in the performance of this exam: Autom ated exposure control; adjustment of the mA and/or kV according to the patient's size; or use of an i terative reconstruction technique. Specific details can be referenced in the facility's radiology C T exam operational policy. Findings: CT head: Brain volume: Age-appropriate. Hemorrhage/extra-axial fluid: None. Mass effect/midline shift/edema: None. Ischemia: Delgado-white differentiation is preserved. Ventricles and basal cisterns: Within normal limits. Posterior fossa: Negative. Calvarium, skull base, and scalp: Negative. Visualized sinuses and orbits: Within normal limits. CTA neck: Aortic arch: Conventional aortic arch anatomy. Right extracranial carotid system: Negative. Left extracranial carotid system: Negative. Vertebral arteries: Negative. Visualized intracranial arteries: Negative. CT cervical spine: Alignment: Within normal limits. Cranio-cervical junction: Within normal limits. Vertebral bodies: No fracture. Posterior elements: No fracture. Minor facet arthropathy. Disc spaces: C4-C5, C5-C6, and C6-C7 mild degenerative disc disease. Small posterior disc and osteop hyte complexes at these levels results in mild canal narrowing. Hardware: None. Soft tissues: Negative. Visualized upper chest: No acute findings. IMPRESSION: 1. Negative noncontrast head CT. 2. Negative CTA neck. 3. No cervical spine fracture or malalignment. 4. Cervical spine mild degenerative change as described above. Report Dictated By: Julian Reilly MD at 06/30/2018 2:51 PM Report E-Signed By: Julian Reilly MD at 06/30/2018 3:07 PM WSN:[email or web address]
--- NOTE | 2018-06-30 15:12 | RADIOLOGY IMAGING REPORT ---
[place] [facility] [place] NAME: Ricky Reveles : 1965 MR: [id number] V: [id number] EXAM DATE: ORDERING PHYSICIAN: NGOC LATHAM TECHNOLOGIST: Location: [facility] Patient: Ricky Reveles : 1965 Visit/Account:[id number] Date of Sevice: 06/30/2018 Examination: CT head without contrast, CTA neck, and CT cervical spine without contrast Comparison: CT head without contrast 08/08/2017. History: Trauma to neck. Left-sided numbness. Procedure: Initial noncontrast head CT and cervical spine CT is followed by arterial phase imaging of the neck with 180 mL intravenous Isovue 370. Reconstruction of the source data set includes multipla max 2D in the sagittal and coronal planes, and 3D reconstructed coronal slab MIP series. Percent emily nosis is based on NASCET criteria. One of the following dose optimization techniques was utilized in the performance of this exam: Autom ated exposure control; adjustment of the mA and/or kV according to the patient's size; or use of an i terative reconstruction technique. Specific details can be referenced in the facility's radiology C T exam operational policy. Findings: CT head: Brain volume: Age-appropriate. Hemorrhage/extra-axial fluid: None. Mass effect/midline shift/edema: None. Ischemia: Delgado-white differentiation is preserved. Ventricles and basal cisterns: Within normal limits. Posterior fossa: Negative. Calvarium, skull base, and scalp: Negative. Visualized sinuses and orbits: Within normal limits. CTA neck: Aortic arch: Conventional aortic arch anatomy. Right extracranial carotid system: Negative. Left extracranial carotid system: Negative. Vertebral arteries: Negative. Visualized intracranial arteries: Negative. CT cervical spine: Alignment: Within normal limits. Cranio-cervical junction: Within normal limits. Vertebral bodies: No fracture. Posterior elements: No fracture. Minor facet arthropathy. Disc spaces: C4-C5, C5-C6, and C6-C7 mild degenerative disc disease. Small posterior disc and osteop hyte complexes at these levels results in mild canal narrowing. Hardware: None. Soft tissues: Negative. Visualized upper chest: No acute findings. IMPRESSION: 1. Negative noncontrast head CT. 2. Negative CTA neck. 3. No cervical spine fracture or malalignment. 4. Cervical spine mild degenerative change as described above. Report Dictated By: Julian Reilly MD at 06/30/2018 2:51 PM Report E-Signed By: Julian Reilly MD at 06/30/2018 3:07 PM WSN:[email or web address]
--- NOTE | 2018-06-30 15:13 | RADIOLOGY IMAGING REPORT ---
FACILITY: [facility] - [place] PATIENT NAME: Ricky Reveles : 1965 MR: [id number] V: [id number] EXAM DATE: ORDERING PHYSICIAN: NGOC LATHAM TECHNOLOGIST: Location: [facility] Patient: Ricky Reveles : 1965 Visit/Account:[id number] Date of Sevice: 06/30/2018 Examination: CT head without contrast, CTA neck, and CT cervical spine without contrast Comparison: CT head without contrast 08/08/2017. History: Trauma to neck. Left-sided numbness. Procedure: Initial noncontrast head CT and cervical spine CT is followed by arterial phase imaging of the neck with 180 mL intravenous Isovue 370. Reconstruction of the source data set includes multipla max 2D in the sagittal and coronal planes, and 3D reconstructed coronal slab MIP series. Percent emily nosis is based on NASCET criteria. One of the following dose optimization techniques was utilized in the performance of this exam: Autom ated exposure control; adjustment of the mA and/or kV according to the patient's size; or use of an i terative reconstruction technique. Specific details can be referenced in the facility's radiology C T exam operational policy. Findings: CT head: Brain volume: Age-appropriate. Hemorrhage/extra-axial fluid: None. Mass effect/midline shift/edema: None. Ischemia: Delgado-white differentiation is preserved. Ventricles and basal cisterns: Within normal limits. Posterior fossa: Negative. Calvarium, skull base, and scalp: Negative. Visualized sinuses and orbits: Within normal limits. CTA neck: Aortic arch: Conventional aortic arch anatomy. Right extracranial carotid system: Negative. Left extracranial carotid system: Negative. Vertebral arteries: Negative. Visualized intracranial arteries: Negative. CT cervical spine: Alignment: Within normal limits. Cranio-cervical junction: Within normal limits. Vertebral bodies: No fracture. Posterior elements: No fracture. Minor facet arthropathy. Disc spaces: C4-C5, C5-C6, and C6-C7 mild degenerative disc disease. Small posterior disc and osteop hyte complexes at these levels results in mild canal narrowing. Hardware: None. Soft tissues: Negative. Visualized upper chest: No acute findings. IMPRESSION: 1. Negative noncontrast head CT. 2. Negative CTA neck. 3. No cervical spine fracture or malalignment. 4. Cervical spine mild degenerative change as described above. Report Dictated By: Julian Reilly MD at 06/30/2018 2:51 PM Report E-Signed By: Julian Reilly MD at 06/30/2018 3:07 PM WSN:[email or web address]
[2018-06-30] MEDS ORDERED: DEXAMETHASONE SOD PHOS 10MG/ML IVP ONE (15:15)
--- NOTE | 2018-06-30 15:22 | RADIOLOGY IMAGING REPORT ---
FACILITY: [facility] - [place] PATIENT NAME: Ricky Reveles : 1965 MR: [id number] V: [id number] EXAM DATE: ORDERING PHYSICIAN: NGOC LATHAM TECHNOLOG[place]: [place] [facility] [place] : 1965 Visit/Account:[id number] Date of Sevice: 06/30/2018 Examination: CT chest, abdomen, and pelvis with contrast Comparison: 07/08/2016 and earlier. History: trauma to neck Procedure: Multiplanar contrast-enhanced imaging of the chest, abdomen, and pelvis. A total of 180 m L intravenous Isovue 370 was administered for all studies. One of the following dose optimization mack hniques was utilized in the performance of this exam: Automated exposure control; adjustment of the m A and/or kV according to the patient's size; or use of an iterative reconstruction technique. Speci fic details can be referenced in the facility's radiology CT exam operational policy. Findings: CT chest: Mediastinum: Cardiac chamber size is normal. No pericardial effusion. No thoracic aortic aneurysm. No mediastinal hemorrhage. Small hiatal hernia. Lymph nodes: Negative. Lungs and pleura: There are a few small foci of inflammatory consolidation in the right upper lobe. No other consolidation or nodule is identified. No pneumothorax, edema, or effusion. Airways: Negative. Diaphragm: Intact. CT abdomen and pelvis: Liver: Negative Gallbladder and biliary system: Negative Spleen: Negative Pancreas: Negative Adrenal glands: Right adrenal 6 mm nodule. This is incompletely characterized but unchanged since at least 07/08/2016 and is favored to be a small adenoma. Kidneys and urinary bladder: There are a few small renal cysts. No mass or hydronephrosis. Urinary bladder is mildly distended but otherwise unremarkable. Vessels: No abdominal aortic aneurysm. No retroperitoneal hemorrhage. Portal venous system and IVC are within normal limits. Bowel and mesentery: Small hiatal hernia. No gastric distention. The appendix is not identified. N o pericecal inflammation. Small amount of stool in the colon. No bowel or mesenteric inflammation. Pelvic organs: Mildly enlarged prostate. Free air/free fluid: None Lymph nodes: Negative Abdominal wall and subcutaneous tissues: Bilateral cord lipomas, less likely fat-containing inguinal hernias. No acute findings. Osseous structures: Thoracolumbar spine: No vertebral body height loss or malalignment. L5-S1 moderate degenerative disc disease. No acute findings. Pelvic ring: Negative Ribs: Negative Visualized sternum, scapula, and clavicles: Negative IMPRESSION: 1. Right upper lobe small foci of consolidation are most suggestive of inflammation and correlation with any evidence of a bronchopneumonia or infectious bronchiolitis is recommended. Contusion is con sidered less likely. 2. No findings of trauma or acute disease are otherwise identified in the chest, abdomen, or pelvis. 3. Chronic/incidental findings as detailed above. Report Dictated By: Julian Reilly MD at 06/30/2018 3:07 PM Report E-Signed By: Julian Reilly MD at 06/30/2018 3:19 PM WSN:[email or web address]
[2018-06-30] MEDS ORDERED: LORazepam 2 MG/ML VIAL ONE (15:28)
[2018-06-30] MEDS ORDERED: LORazepam 2 MG/ML VIAL IVP ONE (15:30)
--- NOTE | 2018-06-30 18:11 | RADIOLOGY IMAGING REPORT ---
FACILITY: [facility] PATIENT NAME: Ricky Reveles : 1965 MR: [id number] V: [id number] EXAM DATE: ORDERING PHYSICIAN: NGOC LATHAM TECHNOLOGIST: Location: [facility] - [place] Patient: Ricky Reveles : 1965 Visit/Account:[id number] Date of Sevice: 06/30/2018 EXAMINATION: Brain MRI without IV contrast HISTORY: Seizure. Left upper extremity weakness. COMPARISON: CT of the head from the same day. MRI of the brain from 08/22/2017. TECHNIQUE: Multi-planar, multi-sequence brain MRI was performed without IV contrast administration. FINDINGS: Brain and other intracranial structures: Ventricles and sulci are normal in size. There is an unchan ged small T2 hyperintense focus in the subcortical white matter of the posterior left frontal lobe. S mall developmental venous anomaly in the right cerebellar hemisphere. No midline shift, mass, hemorrhage, or acute infarct. Calvarium / scalp: Negative. Skull base: Negative. Visualized sinuses / orbits: Mild mucosal thickening in the maxillary sinuses and ethmoid air cells. IMPRESSION: No acute intracranial abnormality. No acute infarct. Unchanged small nonspecific T2 hyperintense focus in the left frontal subcortical white matter. Report Dictated By: Aldo Slaughter MD at 06/30/2018 5:58 PM Report E-Signed By: Aldo Slaughter MD at 06/30/2018 6:07 PM WSN:[email or web address]
--- NOTE | 2018-06-30 18:23 | RADIOLOGY IMAGING REPORT ---
FACILITY: [facility] - [place] PATIENT NAME: Ricky Reveles : 1965 MR: [id number] V: [id number] EXAM DATE: ORDERING PHYSICIAN: NGOC LATHAM TECHNOLOGIST: Location: [facility] - [place], [place] Patient: Ricky Reveles : 1965 Visit/Account:[id number] Date of Sevice: 06/30/2018 EXAMINATION: Cervical spine MRI without IV contrast HISTORY: Neck trauma, left upper extremity/left lower extremity weakness/paresthesias. COMPARISON: CTA of the neck from the same day. Cervical spine MRI from 05/22/2013. TECHNIQUE: Multi-planar, multi-sequence cervical spine MRI was performed without intravenous contras t administration. FINDINGS: Images are degraded by motion artifact. Alignment: Normal. Vertebral marrow signal: Fatty infiltration of the marrow along the C6-7 endplates (Modic type II obey nges). Marrow edema in the posterior elements along the right C7-T1 facet joint. Cranio-cervical junction: Negative. Visualized posterior fossa: Negative. Soft tissues: Negative. Cervical cord: Negative. Disc Spaces: C2-3: No spinal canal or neural foraminal stenosis. C3-4: Slight bulging of the disc which slightly indents the ventral thecal sac. There is mild uncover tebral spurring with mild left neural foraminal stenosis. C4-5: Posterior disc osteophyte complex causes mild spinal canal stenosis. There is bilateral uncover tebral spurring and mild left facet hypertrophy with moderate bilateral neural foraminal stenosis. C5-6: Posterior disc osteophyte complex causes mild spinal canal stenosis. There is mild left facet h ypertrophy. There is moderate right neural foraminal stenosis from uncovertebral spurring. C6-7: Posterior disc osteophyte complexes causes mild spinal canal stenosis. The right neural foramen is severely narrowed by uncovertebral spurring. C7-T1: No spinal canal or neural foraminal stenosis. There is mild right facet hypertrophy. IMPRESSION: Images are degraded by motion artifact. Multilevel disc and facet degenerative changes in the cervical spine with multilevel mild spinal lidia l stenosis. Multilevel neural foraminal stenosis is greatest on the right at C6-7 where there is severe neural fo raminal stenosis. There is marrow edema in the posterior elements along the right C7-T1 facet joint which is probably r eactive secondary to facet degeneration. Report Dictated By: Aldo Slaughter MD at 06/30/2018 6:07 PM Report E-Signed By: Aldo Slaughter MD at 06/30/2018 6:20 PM WSN:[email or web address]
[2018-06-30 18:30] VITALS: BP 128/101
[2018-06-30] MEDS ORDERED: OXYC5CAP21 PO (18:35)
[2018-06-30] MEDS ORDERED: oxyCODONE/ACETAMIN 5/325MG TH 2 TAB/BOTTLE PO ONE (19:05)
[2018-06-30] MEDS ORDERED: predniSONE 20 MG TAB PO ONE (19:05)
[2018-06-30] MEDS ORDERED: PRED20TA6 PO (19:08)
[2018-07-03] MEDS ORDERED: CYCL10TA29 PO (15:07)
== END 2018-06-30 19:32 | disposition home or self-care (01) ==
LOC: ER 13:55
DX: M54.2 Cervicalgia (principal); R20.0 Anesthesia of skin
CPT/HCPCS: 70450; 70498; 70551; 71260; 72125; 72141; 74177; 80320; 81001; 83605; 83690; 85025; 85610; 85730; 96361; 96374; 96375; 99284; J1100; J2060; J3010; J7030; J7512; L0172; Q9967; 82040; 82247; 82310; 82374; 82435; 82565; 82947; 84075; 84132; 84155; 84295; 84450; 84460; 84520